=== PATIENT | female | born 1960 | race Caucasian/White ===

== ENCOUNTER 2016-10-04 15:00 | Emergency (ER) | payer SELFPAY ==
[2016-10-04 15:26] VITALS: BP 144/77
--- NOTE | 2016-10-04 15:36 | ED Physician Documentation ---
General Adult - HISTORIAN Historian: patient - HPI Stated Complaint: sore throat, congestion Chief Complaint: General Adult Additional Information: Sinus congestion and cough for 2 weeks. Sore throat and feverish for 3 days. Throat much worse today with pain, especially with swallowing. - ROS CONST: fever (feverish) - PAST HX Past History: none Allergies/Adverse Reactions: Allergies Allergy/AdvReac Type Severity Reaction Status Date / Time Sulfa (Sulfonamide Allergy Hives Verified 10/04/16 15:15 Antibiotics) Home Medications: Ambulatory Orders Medication Instructions Recorded Amoxicillin [Trimox] 500 mg PO TID #30 capsule 10/04/16 Cetirizine HCl [Zyrtec] 10 mg PO DAILY 10/04/16 - SOCIAL HX Smoking History: cigarettes (down t o1 PPD from 3) - FAMILY HX Family History: No - VITAL SIGNS Vital Signs: Vital Signs Temp Pulse Resp BP Pulse Ox 99.5 F 85 21 144/77 96 10/04/16 15:15 10/04/16 15:15 10/04/16 15:15 10/04/16 15:15 10/04/16 15:15 - REVIEWED ASSESSMENTS Nursing Assessment Reviewed: Yes Vitals Reviewed: Yes ED Results Lab/Radiology - Orders Orders: ED Orders Category Date Time Status Rapid Strep [GRP A STREP SCREEN] Stat Lab 10/04/16 Ordered General Adult Physical Exam - PHYSICAL EXAM GENERAL APPEARANCE: moderate distress (frequent) EENT: eye inspection normal, pharyngeal erythema (exudate) NECK: normal inspection, supple RESPIRATORY: no resp distress, breath sounds normal CVS: reg rate & rhythm, heart sounds normal RECTAL: deferred BACK: other (erect posture, movements w/o pain) SKIN: warm/dry, normal color EXTREMITIES: normal range of motion (gait) NEURO: CN's nml as tested, motor nml, sensation nml, cognition normal Discharge Clincal Impression: Strep throat Prescriptions: Amoxicillin [Trimox] 500 mg PO TID #30 capsule Additional Instructions: Take al lthe antibiotics as prescribed until they are completely gone. Home Medications: Ambulatory Orders Amoxicillin [Trimox] 500 mg PO TID #30 capsule 10/04/16 Cetirizine HCl [Zyrtec] 10 mg PO DAILY 10/04/16 Condition: Fair Disposition: 01 HOME, SELF-CARE Decision to Admit: NO Decision Time: 15:30
== END 2016-10-04 15:33 | disposition home or self-care (01) ==
LOC: ED 15:00
DX: J02.0 Streptococcal pharyngitis (principal)
CPT/HCPCS: 87880; 99282; 99283

== ENCOUNTER 2017-09-23 05:38 | Emergency (ER) | payer SELFPAY ==
[2017-09-23] MEDS ORDERED: KETOROLAC TROMETHAMINE 60 MG/2 ML VIAL IM ONE (06:07)
--- NOTE | 2017-09-23 06:45 | Diagnostic Imaging Report ---
CLARA MANN (ELECTRICAL FOREMAN) - ER [facility] [address] [id number] Report Submission Date: Sep 23, 2017 6:37:49 AM BLUEPRINT PROCESSOR Patient Study Name: PUNEET HOOVER Date: Sep 23, 2017 6:17:40 AM BLUEPRINT PROCESSOR Modality Type: CR Gender: F Description: LOWER EXTREMITY : 56 Institution: [facility] Physician: CLARA MANN (ELSIE) - ER HISTORY: 57-year-old female with right knee pain after fall down stairs. COMPARISON: None available TECHNIQUE: 3 views of the right knee were performed. FINDINGS: No acute fracture is identified about the right knee. No significant joint space narrowing. There is a small tibial tuberosity enthesophyte. No significant lateral patellar tilt or subluxation on the sunrise view. There is a gnzqzamu-rt-nbcya effusion accumulating in the suprapatellar pouch. IMPRESSION: 1. No acute fracture of the right knee. 2. Iiftzelh-cv-aiafp effusion may indicate internal derangement. Consider follow-up noncontrast MRI of the right knee for evaluation of the ligaments and menisci. Electronically signed on Sep 23, 2017 6:37:49 AM BLUEPRINT PROCESSOR by: Cortez PALOMARES
--- NOTE | 2017-09-23 06:47 | ED Physician Documentation ---
Fall - HISTORIAN Historian: patient - HPI Stated Complaint: Right leg pain s/p fall Chief Complaint: Fall Onset: other (midnight) Where: home Context: slipped (on stair, slick icy step) r: moderate Associated Symptoms:: no loss of consciousness Location of Pain/Injury: other (bilateral knees) Injury to Right Extremity: knee Injury to Left Extremity: knee Further Comments: yes (57 year old female patient presents with right knee pain. Patient fell on slicked stair at home around midnight. Patient went to work, right knee "buckling" multiple time, pain worse.) - ROS CONST: no problems NEURO: denies: anxiety, depression MS/SKIN/LYMPH: other (bilatera knees) EYES/ENT: none CVS/RESP: none GI/: denies: nausea, vomiting - PAST HX Past History: other (seasonal allergies, hysterectomy) - SOCIAL HX Smoking History: cigarettes - FAMILY HX Family History: denies: none - VITAL SIGNS Vital Signs: Vital Signs Temp Pulse Resp BP Pulse Ox 97.6 F 72 20 176/78 97 09/23/17 05:40 09/23/17 05:40 09/23/17 05:40 09/23/17 05:40 09/23/17 05:40 - REVIEWED ASSESSMENTS Nursing Assessment Reviewed: Yes Vitals Reviewed: Yes <CLARA MANN C - Last Filed: 09/23/17 06:50> - VITAL SIGNS Vital Signs: Vital Signs Temp Pulse Resp BP Pulse Ox 97.6 F 72 20 176/78 97 09/23/17 05:40 09/23/17 05:40 09/23/17 05:40 09/23/17 05:40 09/23/17 05:40 <Edgard Camara R - Last Filed: 09/23/17 08:05> - PAST HX Allergies/Adverse Reactions: Allergies Allergy/AdvReac Type Severity Reaction Status Date / Time Sulfa (Sulfonamide Allergy Hives Verified 09/23/17 06:03 Antibiotics) Home Medications: Ambulatory Orders Medication Instructions Recorded Cetirizine HCl [Zyrtec] 10 mg PO DAILY 10/04/16 Progress - Progress Progress: Reviewed knee xray results with patient, c/o pain distal to right knee. Will add tib/fib xray. <CLARA MANN C - Last Filed: 09/23/17 06:50> ED Results Lab/Radiology - Radiology Radiology Impressions: HISTORY: 57-year-old female with right knee pain after fall down stairs. COMPARISON: None available TECHNIQUE: 3 views of the right knee were performed. FINDINGS: No acute fracture is identified about the right knee. No significant joint space narrowing. There is a small tibial tuberosity enthesophyte. No significant lateral patellar tilt or subluxation on the sunrise view. There is a mliioret-ay-zkyvd effusion accumulating in the suprapatellar pouch. IMPRESSION: 1. No acute fracture of the right knee. 2. Ulntdkbe-ey-ojyar effusion may indicate internal derangement. Consider follow-up noncontrast MRI of the right knee for evaluation of the ligaments and menisci. Electronically signed on Sep 23, 2017 6:37:49 AM MERCHANDISE COLLECTOR by: Cortez Green - Orders Orders: ED Orders Category Date Time Status Knee Immobilizer 1T Care 09/23/17 06:07 Active XR KNEE 3 VIEWS [KNEE 3 VIEWS] [RAD] Stat Exams 09/23/17 Completed Ketorolac Tromethamine [Toradol] Med 09/23/17 06:07 Discontinued 60 mg IM NOW ONE <CLARA MANN - Last Filed: 09/23/17 06:50> - Radiology Radiology Impressions: xray tib-fib fails to reveal fracture. will use knebrace and pt will get cane or crutches - Orders Orders: ED Orders Category Date Time Status Knee Immobilizer 1T Care 09/23/17 06:07 Active TIBIA & FIBULA 2 VIEW [RAD] Stat Exams 09/23/17 Taken XR KNEE 3 VIEWS [KNEE 3 VIEWS] [RAD] Stat Exams 09/23/17 Completed Ketorolac Tromethamine [Toradol] Med 09/23/17 06:07 Discontinued 60 mg IM NOW ONE Neomycin Bradshaw/Bacitrac Zn/Poly [Triple Antibiotic Med 09/23/17 06:50 Discontinued Ointment] 1 each TP NOW ONE <Edgard Camara - Last Filed: 09/23/17 08:05> Fall Physical Exam - Physical Exam General Appearance: mild distress Head: non-tender, no swelling, no obvious injury Neck: non-tender, painless ROM, trachea midline Eye: ALIX, EOMI, lids & conjunct. nml ENT: nml external inspection Resp/CVS: chest non-tender, no ecchymosis, breath sounds nml, no resp. distress , heart sounds nml Abdomen: soft, no organomegaly, normal bowel sounds, no abdominal bruit, no distension Neuro: oriented x3, CN's nml as tested, sensation nml, motor nml, mood/affect nml, aerial gunner nml, reflexes nml, aerial gunner symmetrical Skin: color nml, no rash, nml palp., dry, other (bilateral knee abrasions) Back: normal inspection, no CVA tenderness Extremities: atraumatic, pelvis stable, hips non-tender, no pedal edema, nml ROM , nml color/temp Joint: joints nml, nml ROM, Nml gait/weight bearing - [place] Coma Score Eyes Open: Spontaneous Speech: Oriented Motor: Obeys Commands <CLARA MANN - Last Filed: 09/23/17 06:50> Discharge <CLARA MANN - Last Filed: 09/23/17 06:50> Decision to Admit: NO Decision Time: 08:05 <Edgard Camara - Last Filed: 09/23/17 08:05> Clincal Impression: fall w/bilat knee sprain conntusion Referrals: Primary Doctor,No [Primary Care Provider] - 2 Days Condition: Good Disposition: 01 HOME, SELF-CARE
[2017-09-23] MEDS ORDERED: NEOMYCIN SU/BACITRAC ZN/POLY 1 EACH OINT.PACK TP ONE (06:50)
[2017-09-23 08:10] VITALS: BP 150/68
--- NOTE | 2017-09-23 09:10 | Diagnostic Imaging Report ---
CLARA MANN (MARINE SURVEYOR) - ER [facility] [address] [address] Report Submission Date: Sep 23, 2017 7:16:49 AM LEARNING OPERATIONS SPECIALIST Patient Study Name: PUNEET HOOVER Date: Sep 23, 2017 6:55:00 AM LEARNING OPERATIONS SPECIALIST Modality Type: CR Gender: F Description: LOWER EXTREMITY : 56 Institution: [facility] Physician: CLARA MANN (ELSIE) - ER HISTORY: 57-year-old female fell and complains of left lower leg pain. COMPARISON: None available TECHNIQUE: AP & lateral views of the left tibia and fibula were performed. FINDINGS: No fracture or other osseous abnormality about the left tibia and fibula. No radiopaque foreign bodies are identified in the soft tissues. Plantar calcaneal bone spur and Achilles insertion enthesophyte are incidentally noted. IMPRESSION: No acute fracture of the left lower leg. Electronically signed on Sep 23, 2017 7:16:49 AM LEARNING OPERATIONS SPECIALIST by: Cortez PALOMARES
== END 2017-09-23 08:08 | disposition home or self-care (01) ==
LOC: ED 05:38
DX: S80.02XA Contusion of left knee, initial encounter (principal); S80.01XA Contusion of right knee, initial encounter; W00.1XXA Fall from stairs and steps due to ice and snow, initial encounter; Y93.9 Activity, unspecified; Y92.9 Unspecified place or not applicable; Y99.9 Unspecified external cause status
CPT/HCPCS: 73562; 73590; J1885; L1830; 96372; 99283